=== PATIENT | female | born 1985 | race Caucasian/White ===

== ENCOUNTER 2017-07-31 06:53 | Emergency (ER) | payer OTHER ==
[2017-07-31] MEDS: FAMOTIDINE 20 MG TAB PO (07:45)
[2017-07-31] MEDS: METHYLPREDNISOLONE 125 MG INJ IM (07:45)
[2017-07-31] MEDS: DIPHENHYDRAMINE 50 MG INJ IM (07:45)
[2017-07-31] MEDS: IPRATROPIUM (NEB) 0.5 MG/2.5 ML AMP HHN (08:03)
[2017-07-31] MEDS: ALBUTEROL 0.083% (NEB) 2.5 MG/3 ML AMP HHN (08:03)
== END 2017-07-31 08:51 | disposition home or self-care (01) ==
LOC: FTE 06:53
DX: L50.0 Allergic urticaria (principal)
CPT/HCPCS: 94664; 96372; 99284-25

== ENCOUNTER 2017-08-17 13:08 | Emergency (ER) | payer OTHER | END 2017-08-17 13:35 | disposition home or self-care (01) | LOC: FTE 13:08 → E/R 13:35 | DX: J02.0 Streptococcal pharyngitis (principal) | CPT/HCPCS: 99283; Z7502 ==

== ENCOUNTER 2017-10-19 18:46 | Emergency (ER) | payer OTHER ==
[2017-10-19] MEDS: LORAZEPAM 0.5 MG TAB PO (23:12)
== END 2017-10-19 23:16 | disposition home or self-care (01) ==
LOC: FTE 18:46
DX: F41.9 Anxiety disorder, unspecified (principal)
CPT/HCPCS: 99283; Z7502

== ENCOUNTER 2018-07-12 11:46 | Emergency (ER) | payer OTHER | END 2018-07-12 15:13 | disposition home or self-care (01) | LOC: FTE 11:46 | DX: R20.2 Paresthesia of skin (principal) | CPT/HCPCS: 70450; 81025; 99284-25 ==

== ENCOUNTER 2018-10-15 08:56 | Emergency (ER) | payer OTHER | END 2018-10-15 09:54 | disposition home or self-care (01) | LOC: FTE 08:56 | DX: J06.9 Acute upper respiratory infection, unspecified (principal) | CPT/HCPCS: 99283; Z7502 ==

== ENCOUNTER 2018-10-19 21:46 | Emergency (ER) | payer OTHER ==
[2018-10-20 00:39] LABS: URINE BLOOD (Dip) POC Trace-intact (NEGATIVE); URINE GLUCOSE (Dip) POC Negative (NEGATIVE); URINE KETONES (Dip) POC Negative (NEGATIVE); URINE LEUKOCYTE EST (Dip) POC Negative (NEGATIVE); URINE NITRITE (Dip) POC Negative (NEGATIVE); URINE TOTAL PROTEIN POC Negative (NEGATIVE)
[2018-10-20 00:39] LABS: URINE PH (Dip) POC 5.5 (5.0-8.5)
[2018-10-20] MEDS: KETOROLAC 30 MG INJ IM (00:47)
== END 2018-10-20 02:06 | disposition home or self-care (01) ==
LOC: FTE 21:46
DX: J20.9 Acute bronchitis, unspecified (principal)
CPT/HCPCS: 71046; 81003; 81025; 96372; 99284-25

== ENCOUNTER 2019-01-07 18:05 | Emergency (ER) | payer OTHER | END 2019-01-07 19:09 | disposition home or self-care (01) | LOC: FTE 18:05 | DX: R05 Cough (principal) | CPT/HCPCS: 99283; Z7502 ==